=== PATIENT | male | born 1985 | race Caucasian/White ===

== ENCOUNTER 2022-07-03 20:01 | Emergency (ER) | payer BC ==
[~2022-07-03] VITALS: Ht 177.8 cm; Wt 88.5 kg
== END 2022-07-03 22:02 | disposition home or self-care (01) ==
LOC: ED 20:01
DX: T17.228A Food in pharynx causing other injury, initial encounter (principal); X58.XXXA Exposure to other specified factors, initial encounter; Y93.89 Activity, other specified; Y92.89 Other specified places as the place of occurrence of the external cause; Y99.8 Other external cause status